=== PATIENT | female | born 1960 ===

== ENCOUNTER 2018-12-16 07:10 | Day surgery (SDC) | payer OTHER ==
[~2018-12-16 07:10] MED LIST: Acetaminophen TAB* 325 MG PO PRN
[2018-12-16] MEDS ORDERED: Midazolam* 1 MG/ML 5 ML VIAL (5 MG) ONE (07:33)
[2018-12-16 10:20] VITALS: BP 118/64
--- NOTE | 2018-12-16 10:51 | OP ---
OPERATIVE REPORT: DATE OF OPERATION: 12/16/18 DATE OF : 62 SURGEON: Francois Vanegas MD ANESTHESIA: Monitored anesthesia care. PREOPERATIVE DIAGNOSIS: Cataract, right eye. POSTOPERATIVE DIAGNOSIS: Cataract, right eye. OPERATIVE PROCEDURE: Extracapsular cataract extraction of the right eye with intraocular lens implan t. IMPLANT: SN60WF 24.5 diopter lens to the right eye. COMPLICATIONS: None. DESCRIPTION OF PROCEDURE: The patient was given phenylephrine 2.5 % and cyclopentolate 1% eye drops to the operative eye in the preoperative area. The patient was taken to the operating room where a ti me-out was taken to identify the correct patient, site, and side of surgery. The patient's right eye was prepped and draped in the usual sterile fashion with 5% Betadine. A second time-out was taken to verify the correct patient, side, and site of surgery, as well as the correct lens implant. A lid spe culum was placed to the right eye. A 1mm paracentesis blade was used to make a clear corneal incision . Preservative-free 1% lidocaine was injected into the anterior chamber. DisCoVisc was then injected into the anterior chamber. A 2.75 mm keratome blade was used to make a triplanar incision. A cystotom e initiated a capsulorrhexis, which was completed with Utrata forceps in a continuous and curvilinear manner. Hydrodissection of the lens was performed with BSS on a cannula. The lens could be spun in a capsular bag. The phacoemulsification handpiece was used with a ajyymc-eww-rxhwwqh technique to alexey ve the nucleus. The I/A handpiece then removed the residual cortical lens material. DisCoVisc was inj ected to inflate the capsular bag. The planned SN60WF 24.5 diopter lens was injected into the capsula r bag. The residual DisCoVisc was removed from the eye with the I/A handpiece. The corneal incisions were hydrated and no leaks occurred at physiologic pressure around 20 mmHg per palpation. The lid spe culum was removed and drapes were removed. Maxitrol ointment was placed to the surface of the operati ve eye. An adhesive patch and shield was then placed on the operative eye. The patient was taken to [facility] postoperative area in stable condition. [id number]/[facility] #: [id number]
[2018-12-16] MEDS ORDERED: Cyclopentolate 1% OPTH.SOL* 2 ML BTL ONE (12:57)
[2018-12-16] MEDS ORDERED: Povidone Iodine 5% OPTH* 30 ML BTL ONE (12:57)
[2018-12-16] MEDS ORDERED: Phenylephrine OPHTH SOL 2.5%* 2 ML ONE (12:57)
[2018-12-16] MEDS ORDERED: Tetracaine 0.5% OPTH.SOL 4 ML* 1 DROP BTL ONE (12:57)
[2018-12-16] MEDS ORDERED: Ketorolac 0.5% OPHTH (NF) 0.5 % 5 ML BTL ONE (12:57)
[2018-12-16] MEDS ORDERED: acetaZOLAMIDE TAB* 250 MG ONE (12:57)
[2018-12-16] MEDS ORDERED: Tropicamide 1% OPTH.SOL* BTL ONE (12:57)
[2018-12-16] MEDS ORDERED: Lidocaine 1%* 5 ML VIAL ONE (12:57)
[2018-12-16] MEDS ORDERED: Neomycin/Polymy/Dex OPHTH.OIN* 3.5 GM ONE (12:57)
== END 2018-12-16 08:58 | disposition home or self-care (01) ==
LOC: OREAST 07:10
PROVIDERS: ATTEND Student in an Organized Health Care Education/Training Program
DX: H25.11 Age-related nuclear cataract, right eye (principal); B20 Human immunodeficiency virus [HIV] disease; Z88.0 Allergy status to penicillin; F31.9 Bipolar disorder, unspecified; Z72.0 Tobacco use
CPT/HCPCS: A9270-GY; J2250; V2632

== ENCOUNTER 2018-12-30 09:15 | Day surgery (SDC) | payer OTHER ==
[2018-12-30] MEDS ORDERED: Midazolam* 1 MG/ML 2 ML VIAL (2 MG) ONE (10:19)
[2018-12-30 11:02] VITALS: BP 106/61
[2018-12-30] MEDS ORDERED: Phenylephrine OPHTH SOL 2.5%* 2 ML ONE (11:14)
[2018-12-30] MEDS ORDERED: Lidocaine 1%* 5 ML VIAL ONE (11:14)
[2018-12-30] MEDS ORDERED: Cyclopentolate 1% OPTH.SOL* 2 ML BTL ONE (11:14)
[2018-12-30] MEDS ORDERED: Neomycin/Polymy/Dex OPHTH.OIN* 3.5 GM ONE (11:14)
[2018-12-30] MEDS ORDERED: Povidone Iodine 5% OPTH* 30 ML BTL ONE (11:14)
[2018-12-30] MEDS ORDERED: Ketorolac 0.5% OPHTH (NF) 0.5 % 5 ML BTL ONE (11:14)
[2018-12-30] MEDS ORDERED: Tetracaine 0.5% OPTH.SOL 4 ML* 1 DROP BTL ONE (11:14)
[2018-12-30] MEDS ORDERED: acetaZOLAMIDE TAB* 250 MG ONE (11:14)
[2018-12-30] MEDS ORDERED: Tropicamide 1% OPTH.SOL* BTL ONE (11:14)
--- NOTE | 2018-12-30 12:41 | OP ---
DATE OF OPERATION: 12/30/18 - [facility] DATE OF : 62 SURGEON: Francois Vanegas MD. ANESTHESIA: Monitored anesthesia care. PREOPERATIVE DIAGNOSIS: Cataract, left eye. POSTOPERATIVE DIAGNOSIS: Cataract, left eye with floppy iris syndrome. OPERATIVE PROCEDURE: Extracapsular cataract extraction of the left eye with intraocular lens implant. IMPLANT: SN60WF 23.5 diopter lens to the left eye. COMPLICATIONS: None. DESCRIPTION OF PROCEDURE: The patient was given phenylephrine 2.5 % and cyclopentolate 1% eye drops to the operative eye in the preoperative area. The patient was taken to the operating room where a time-out was taken to identify the correct patient, site, and side of surgery. The patient's left eye was prepped and draped in the usual sterile fashion with 5% Betadine. A second time -out was taken to verify the correct patient, side, and site of surgery, and correct lens implant. A lid speculum was placed to the left eye. A 1 mm paracentesis blade was used to make a clear corneal incision in the inferior temporal position. Preservative-free 1% lidocaine was injected into the anterior chamber. DisCoVisc was then injected into the anterior chamber. A 2.75 mm keratome blade was used to make a triplanar incision at the superior temporal position. A Malyugin ring was then inserted due to poor pupillary dilation and evidence of floppy iris syndrome. A cystotome initiated a capsulorrhexis, which was completed with Utrata forceps in a continuous and curvilinear manner. Hydrodissection of the lens was performed with BSS on a cannula. The lens could be spun in the capsular bag. The phacoemulsification handpiece was used with a jahztl-cez-klqybhz technique to remove the nucleus. The I/A handpiece then removed the residual cortical lens material. DisCoVisc was injected to inflate the capsular bag. The planned SN60WF 23.5 diopter lens was injected into the capsular bag. The Malyugin ring was then removed from the anterior chamber. The residual DisCoVisc was then removed from the eye with the I/A handpiece. The corneal incisions were hydrated and no leaks occurred at physiologic pressure around 20 mmHg per palpation. The lid speculum was removed and drapes were removed. Maxitrol ointment was placed to the surface of the operative eye. An adhesive patch and shield was then placed on the operative eye. The patient was taken to the postoperative area in stable condition. [id number]/[facility] #: [id number] JOEL
== END 2018-12-30 11:10 | disposition home or self-care (01) ==
LOC: OREAST 09:15
PROVIDERS: ATTEND Student in an Organized Health Care Education/Training Program
DX: H25.12 Age-related nuclear cataract, left eye (principal); H21.81 Floppy iris syndrome; B20 Human immunodeficiency virus [HIV] disease; F17.210 Nicotine dependence, cigarettes, uncomplicated; G24.01 Drug induced subacute dyskinesia; J45.909 Unspecified asthma, uncomplicated; Z88.0 Allergy status to penicillin
CPT/HCPCS: A9270-GY; J2250; V2632

== ENCOUNTER 2023-07-20 07:30 | Inpatient (IN) ==
[~2023-07-20 07:30] MED LIST changes: -Acetaminophen TAB* 325 MG PO PRN; +Buffered Lidocaine 1% SYRIN 1 ml INTRADERM ONE; +Lactated Ringers 1000 ml BAG 1,000 ML IV SCH; +Scopolamine 1 mg/72hr PATCH TRANSDERM ONE
[2023-07-20] MEDS ORDERED: ceFAZolin 2 GM PREMIX 2 GM/50 ML BAG ONE (08:30)
[2023-07-20] MEDS ORDERED: Scopolamine 1 mg/72hr PATCH ONE (08:30)
[2023-07-20] MEDS ORDERED: Tranexamic Acid 1 GM/100ML BAG 2,000 MG/200 ML BAG IV ONE (08:30)
[2023-07-20] MEDS ORDERED: Ondansetron 4 mg VIAL 2 MG/ML 2 ml VIAL ONE (08:33)
[2023-07-20] MEDS ORDERED: Lidocaine 2% PF 5 ML VIAL ONE (08:33)
[2023-07-20] MEDS ORDERED: Glycopyrrolate IV 0.2 MG/ML 1 ML VIAL ONE (08:33)
[2023-07-20] MEDS ORDERED: Midazolam 2 mg/2 ml VIAL 1 mg/ml 2 ml VIAL (2 mg) ONE ×2 (08:33→09:01)
[2023-07-20] MEDS ORDERED: Dexamethasone IV 4 MG/ML VIAL 1 ml VIAL ONE ×2 (08:33→09:02)
[2023-07-20] MEDS ORDERED: fentaNYL 100 mcg/2 ml 50 MCG/ML VIAL ONE ×4 (08:34→12:41)
[2023-07-20] MEDS ORDERED: Sevoflurane BOTTLE ONE (08:40)
[2023-07-20 08:50] LABS: Rapid COVID-19 Molecular Undetected (Undetected)
[2023-07-20] MEDS ORDERED: ROPIVACAINE 5 MG/ML 30 ML BTL (0.5%) ONE ×2 (09:01→09:42)
[2023-07-20] MEDS ORDERED: KETAMINE HCL 10 MG/ML 20 ml VIAL (200 MG) ONE (10:31)
[2023-07-20] MEDS ORDERED: HYDROmorphone 0.5 MG/0.5 ML SYRINGE ONE ×2 (10:42→10:50)
[2023-07-20] MEDS ORDERED: Morphine 2 MG/ML SYRINGE IV PRN (10:45)
[2023-07-20] MEDS ORDERED: Magnesium Hydroxide LIQ 30 ML UDC PO PRN (10:45)
[2023-07-20] MEDS ORDERED: Labetalol IV 5 MG/ML 20 ml VIAL ONE (10:50)
[2023-07-20] MEDS ORDERED: Naloxone 0.4 mg VIAL 0.4 mg/ml 1 ml VIAL IV PRN (10:51)
[2023-07-20] MEDS ORDERED: Ondansetron 4 mg VIAL 2 MG/ML 2 ml VIAL IV PRN (10:51)
[2023-07-20] MEDS ORDERED: Metoclopramide 5 MG/ML VIAL (10 mg) IV PRN (10:51)
[2023-07-20] MEDS ORDERED: HYDROcodone/ACETAMIN 5/325 mg TAB ONE ×2 (12:41→12:57)
[2023-07-20] MEDS: HYDROcodone/ACETAMIN 5/325 mg TAB PO PRN ×2 (12:43→12:58)
[2023-07-20] MEDS: fentaNYL 100 mcg/2 ml 50 MCG/ML VIAL IV PRN ×3 (12:45→12:59)
[2023-07-20] MEDS: Lactated Ringers 1000 ml BAG 1,000 ML IV SCH (14:39)
[2023-07-20] MEDS: PTO: Bictegravir/Emtricit/Tenofov 1 TABLET PO SCH (18:11)
[2023-07-20] MEDS: ceFAZolin 1 GM ADVAN 1 GM in NS 0.9% 50 ML 50 ML IVPB SCH (18:12)
[2023-07-20] MEDS: Magnesium Hydroxide LIQ 30 ML UDC PO SCH (21:31)
[2023-07-20] MEDS: CMCS: Perphenazine 8 mg TAB (NF) PO SCH (21:33)
[2023-07-20] MEDS: CMCS: Doxepin 25 mg CAP (NF) PO SCH (21:34)
[2023-07-21] MEDS: Lactated Ringers 1000 ml BAG 1,000 ML IV SCH ×2 (01:22→11:57)
[2023-07-21] MEDS: ceFAZolin 1 GM ADVAN 1 GM in NS 0.9% 50 ML 50 ML IVPB SCH ×2 (01:24→10:24)
[2023-07-21 05:00] LABS: Platelet Count 289 10^3/uL (150-450)
[2023-07-21 05:19] LABS: Calcium 8.8 mg/dL (8.6-10.3); Creatinine, Serum 0.79 mg/dL (0.51-0.95); Potassium 4.3 mmol/L (3.5-5.0); eGFR CKD-EPI 84.5 (>60)
[2023-07-21 06:27] LABS: Hematocrit 42.1 % (35-45); Hemoglobin 14.1 g/dL (11.5-14.3); Mean Platelet Volume 6.5 fL (7.5-11.2)
[2023-07-21] MEDS: Magnesium Hydroxide LIQ 30 ML UDC PO SCH ×2 (08:03→22:12)
[2023-07-21] MEDS: Vitamin THERAPEUTIC TAB PO SCH (08:03)
[2023-07-21] MEDS: PTO: Cariprazine 1.5 mg CAP (NF) PO SCH (08:05)
[2023-07-21] MEDS: PTO: Bictegravir/Emtricit/Tenofov 1 TABLET PO SCH (17:29)
[2023-07-21] MEDS: CMCS: Perphenazine 8 mg TAB (NF) PO SCH (22:15)
[2023-07-21] MEDS: CMCS: Doxepin 25 mg CAP (NF) PO SCH (22:16)
[2023-07-22 06:25] LABS: Platelet Count 248 10^3/uL (150-450)
[2023-07-22 06:35] LABS: Hematocrit 38.7 % (35-45); Hemoglobin 13.1 g/dL (11.5-14.3); Mean Platelet Volume 6.4 fL (7.5-11.2)
[2023-07-22] MEDS: Magnesium Hydroxide LIQ 30 ML UDC PO SCH ×2 (09:39→21:10)
[2023-07-22] MEDS: Lactulose 30 ml UDC PO PRN ×2 (09:39→21:10)
[2023-07-22] MEDS: Vitamin THERAPEUTIC TAB PO SCH (09:41)
[2023-07-22] MEDS: CARIPRAZINE 1.5 MG PO SCH (10:15)
[2023-07-22] MEDS: PTO: Cariprazine 1.5 mg CAP (NF) PO SCH (10:20)
[2023-07-22] MEDS: PTO: Bictegravir/Emtricit/Tenofov 1 TABLET PO SCH (17:00)
[2023-07-22] MEDS: CMCS: Perphenazine 8 mg TAB (NF) PO SCH (21:10)
[2023-07-22] MEDS: CMCS: Doxepin 25 mg CAP (NF) PO SCH (21:11)
[2023-07-23 06:16] LABS: Hematocrit 40.5 % (35-45); Hemoglobin 13.6 g/dL (11.5-14.3); Mean Platelet Volume 6.3 fL (7.5-11.2); Platelet Count 243 10^3/uL (150-450)
[2023-07-23] MEDS: Lactulose 30 ml UDC PO PRN (08:59)
[2023-07-23] MEDS: Vitamin THERAPEUTIC TAB PO SCH (08:59)
[2023-07-23] MEDS: Magnesium Hydroxide LIQ 30 ML UDC PO SCH ×2 (08:59→21:09)
[2023-07-23] MEDS: CARIPRAZINE 1.5 MG PO SCH (09:06)
[2023-07-23] MEDS: PTO: Bictegravir/Emtricit/Tenofov 1 TABLET PO SCH (17:42)
[2023-07-23] MEDS: CMCS: Perphenazine 8 mg TAB (NF) PO SCH (21:08)
[2023-07-23] MEDS: CMCS: Doxepin 25 mg CAP (NF) PO SCH (21:08)
[2023-07-24 05:35] LABS: Platelet Count 297 10^3/uL (150-450)
[2023-07-24 06:01] LABS: Hematocrit 38.6 % (35-45); Mean Platelet Volume 6.7 fL (7.5-11.2)
[2023-07-24] MEDS ORDERED: Iohexol 350 (CONTRAST) 500 ML MDV IV ONE (09:12)
[2023-07-24] MEDS: Vitamin THERAPEUTIC TAB PO SCH (09:25)
[2023-07-24] MEDS: Magnesium Hydroxide LIQ 30 ML UDC PO SCH (09:30)
[2023-07-24 10:12] VITALS: BP 131/82
[2023-07-24] MEDS: CARIPRAZINE 1.5 MG PO SCH (11:03)
== END 2023-07-24 12:40 | disposition home or self-care (01) | DRG 302 ==
LOC: AA 07:44 → INTOOBSV 07:44 → SSU 10:45
PROVIDERS: ADMIT Orthopaedic Surgery Adult Reconstructive Orthopaedic Surgery; ATTEND Orthopaedic Surgery Adult Reconstructive Orthopaedic Surgery

== ENCOUNTER 2023-11-29 07:02 | Observation (INO) ==
[~2023-11-29 07:02] MED LIST changes: -Buffered Lidocaine 1% SYRIN 1 ml INTRADERM ONE; -Lactated Ringers 1000 ml BAG 1,000 ML IV SCH; +Naloxone 0.4 mg VIAL 0.4 mg/ml 1 ml VIAL IV PRN; +Ondansetron 4 mg VIAL 2 MG/ML 2 ml VIAL IV PRN; -Scopolamine 1 mg/72hr PATCH TRANSDERM ONE; +fentaNYL 100 mcg/2 ml 50 MCG/ML VIAL IV PRN
[2023-11-29] MEDS ORDERED: Clindamycin 900 MG/50 **NS BAG 900 MG/50 ML BAG ONE (07:48)
[2023-11-29] MEDS ORDERED: Midazolam 2 mg/2 ml VIAL 1 mg/ml 2 ml VIAL (2 mg) ONE (07:51)
[2023-11-29] MEDS ORDERED: Lidocaine 2% PF 5 ML VIAL ONE (07:51)
[2023-11-29] MEDS ORDERED: fentaNYL 250 mcg/5 ml 50 MCG/ML 5 ml VIAL (250 MCG) ONE (07:51)
[2023-11-29] MEDS ORDERED: Propofol 10 MG/ML 20 ML BTL ONE ×2 (07:51→09:46)
[2023-11-29] MEDS ORDERED: ROPIVACAINE 5 MG/ML 30 ML BTL (0.5%) ONE (08:07)
[2023-11-29] MEDS ORDERED: Dexamethasone IV 4 MG/ML VIAL 1 ml VIAL ONE ×2 (08:09→09:01)
[2023-11-29] MEDS: Buffered Lidocaine 1% SYRIN 1 ml INTRADERM ONE (08:12)
[2023-11-29] MEDS: Lactated Ringers 1000 ml BAG 1,000 ML IV SCH ×2 (08:13→12:11)
[2023-11-29 08:23] LABS: Rapid COVID-19 Molecular Undetected (Undetected)
[2023-11-29] MEDS ORDERED: Ondansetron 4 mg VIAL 2 MG/ML 2 ml VIAL ONE (09:01)
[2023-11-29] MEDS ORDERED: fentaNYL 100 mcg/2 ml 50 MCG/ML VIAL ONE (09:55)
[2023-11-29] MEDS ORDERED: Morphine 2 MG/ML SYRINGE IV PRN (10:54)
[2023-11-29] MEDS ORDERED: Ondansetron 4 mg VIAL 2 MG/ML 2 ml VIAL IV PRN (10:54)
[2023-11-29] MEDS ORDERED: Magnesium Hydroxide LIQ 30 ML UDC PO PRN (10:54)
[2023-11-29] MEDS ORDERED: Lactulose 30 ml UDC PO PRN (10:54)
[2023-11-29] MEDS ORDERED: Ondansetron ODT 4 mg TAB 4 MG TAB PO PRN (10:54)
[2023-11-29] MEDS: ceFAZolin 1 GM ADVAN 1 GM in NS 0.9% 50 ML 50 ML IVPB SCH (17:14)
[2023-11-29] MEDS: PTO: Bictegravir/Emtricit/Tenofov 1 TABLET PO SCH (18:33)
[2023-11-29] MEDS: CMCS: Doxepin 25 mg CAP (NF) PO SCH (20:54)
[2023-11-29] MEDS: CMCS: Perphenazine 8 mg TAB (NF) PO SCH (20:55)
[2023-11-29] MEDS: Magnesium Hydroxide LIQ 30 ML UDC PO SCH (20:55)
[2023-11-30 06:16] LABS: Calcium 9.2 mg/dL (8.6-10.3); Creatinine, Serum 0.83 mg/dL (0.51-0.95); Hematocrit 45.1 % (35-45); Hemoglobin 15.4 g/dL (11.5-14.3); Mean Platelet Volume 6.6 fL (7.5-11.2); Platelet Count 327 10^3/uL (150-450); Potassium 4.8 mmol/L (3.5-5.0); eGFR CKD-EPI 79.7 (>60)
[2023-11-30 09:23] VITALS: BP 128/74
[2023-11-30] MEDS: Vitamin THERAPEUTIC TAB PO SCH (09:23)
== END 2023-11-30 11:56 | disposition home or self-care (01) ==
LOC: SSU 07:02 → OR 07:02
PROVIDERS: ADMIT Orthopaedic Surgery Hand Surgery; ATTEND Orthopaedic Surgery Hand Surgery